=== PATIENT | female | born 1985 | race Hispanic/Latino ===

== ENCOUNTER 2025-03-25 17:21 | Emergency (ER) | payer SELFPAY ==
[~2025-03-25] VITALS: Ht 160 cm; Wt 113.0 kg
[2025-03-25 18:01] LABS: IMMATURE GRANULOCYTE ABSOLUTE 0.01 K/uL (0-1); NUCLEATED RED BLOOD CELLS 0.0 % (0.0-0.19); PLATELET COUNT (AUTO) 366 K/uL (130-400); RED BLOOD CELL COUNT(AUTO) 5.11 MIL/uL (4.00-5.50); RED CELL DISTRIBUTION WIDTH 12.8 % (11.0-15.5); WHITE BLOOD COUNT (AUTO) 8.8 K/uL (4.8-10.8)
[2025-03-25 18:34] LABS: CREATININE 0.6 mg/dL (0.5-1.0); GLOMERULAR FILTR. RATE CALC 117.0 mL/min (>90); GLUCOSE,RANDOM 88.0 mg/dL (70-105); SODIUM SERUM 137.0 mmol/L (136-145); UREA NITROGEN, BLOOD 12.0 mg/dL (7-18)
[2025-03-25 18:38] LABS: ASPARTATE AMINOTRANSFERASE 14.0 U/L (10-37); TOTAL PROTEIN, SERUM 7.3 g/dL (6.0-8.3)
[2025-03-25] MEDS: 0.9%NACL 1000ML 1,000 ML IV ONE (18:44)
[2025-03-25] MEDS ORDERED: IOHEXOL-350 75 ML VIAL IV ONE (18:48)
--- NOTE | 2025-03-25 18:48 | NUR ---
PENDING IV SITE FOR CT EXAM.
[2025-03-25 18:54] LABS: APPEARANCE,URINE CLEAR (CLEAR); GLUCOSE, URINE (UA) NEGATIVE (NEGATIVE); LEUKOCYTE ESTERASE ,URINE NEGATIVE Leu/uL (NEGATIVE); NITRATE,URINE NEGATIVE (NEGATIVE); OCCULT BLOOD,URINE +- (TRACE) (NEGATIVE)
[2025-03-25 18:55] LABS: ADD UA MICROSCOPIC YES
[2025-03-25 18:56] LABS: SQUAMOUS EPITHELIAL CELL,UR FEW /HPF (0-2)
--- NOTE | 2025-03-25 19:16 | ERN ---
ED Note History of Present Illness Stated Complaint: CONSTIPATION Chief Complaint: Constipation Time Seen by MD: 17:24 Time Seen by Midlevel: 17:24 Dictation: The patient is a 39-year-old female with a history of diabetes, cholecystectomy who presents to the emergency department with complaints of generalized abdominal pain, bloating, constipation, nausea and vomiting. Patient reports he has been having problems with constipation for over a month. Reports she has not had a normal bowel movement since. Reports that today she vomited black and became concerned. Patient denies any fevers Allergies: Coded Allergies: No Known Drug Allergies (Unverified Allergy, Unknown, 03/25/25) Past Medical History Past Medical History: Diabetes-Type II Surgical History: Tonsillectomy, Cholecystectomy LMP: Mar 16, 2025 RN Note Reviewed/Agreed w/PFSH: Yes Review of System Dictation Constitutional: Negative for fever,chills, and weight loss Eyes: Negative for injury, pain,redness, and discharge ENT: Negative for injury,pain or swelling Cardiovascular: Negative for chest pain, palpitations, and edema Respiratory: Negative for shortness of breath, cough, and wheezing, Abdomen/GI: Negative for diarrhea, positive for abdominal pain, nausea, vomiting, constipation Back: Negative for injury and pain : Negative for injury, bleeding and discharge MS/Extremity: Negative for injury and deformity Skin: Negative for rash, and discoloration Neuro: Negative for headache, weakness, numbness, tingling, and seizure Psych: Negative for suicide ideation, homicidal ideation, and hallucinations Initial Vital Sign VS Vital Signs Date Time Temp Pulse Resp B/P (MAP) Pulse Ox O2 Delivery O2 Flow Rate FiO2 03/25/25 17:23 98.2 103 20 159/78 99 Room Air 0 Physical Exam Dictation Vital Signs reviewed General Appearance: Alert, oriented x 3, no acute distress, well developed, nourished. Head and Face: non-traumatic. Eyes: PERRL, pink conjunctivas, eyelid no trauma, anterior chamber with arcus senilis. Ears: Pinnas intact and no signs of trauma or erythema ear canals clear and no discharge TM no erythema Nose: No discharge, no bleeding. Oropharynx: Mouth normal, tongue pink. pharynx clear,no erythema, tonsils no exudates, no abscesses noted, mucous membrane moist Neck: Supple, non-tender, no thyromegaly, no masses, no JVD, no bruits Breast:Deferred Chest:No tenderness, no crepitus, no paradoxical movement, no retractions Lungs:Clear, well-ventilated, symmetric, no rales, no wheezing, no rhonchi, no stridor, good breath sounds bilaterally Heart: Regular rate, regular rhythm, no murmur, no gallops Vascular: no peripheral edema, Abdomen: Soft, positive bowel sounds, nondistended, no guarding, Generalized tenderness, no rebound, no masses no hepatomegaly, no splenomegaly, no Hurst's sign, no hernias. Rectal: Deferred Genital: Deferred Neurological: Normal speech, motor function intact, sensory function intact Musculoskeletal: Neck nontender, full range of motion, back nontender, full range of motion, Extremities: nontender, full range of motion Skin: Color pink, dry, no turgor, no rash, no lacerations, no abrasions, no contusions. Lymphatic: Deferred Results (Laboratory/Radiology) Laboratory/Radiology Laboratory Tests Test 03/25/25 17:47 03/25/25 18:45 White Blood Count 8.8 K/uL (4.8-10.8) Red Blood Count 5.11 MIL/uL (4.00-5.50) Hemoglobin 14.2 g/dL (12.0-16.0) Hematocrit 42.6 % (36-48) Mean Corpuscular Volume 83.4 fL (79-99) Mean Corpuscular Hemoglobin 27.8 pg (27.0-33.0) Mean Corpuscular Hemoglobin Concent 33.3 g/dL (32.0-36.0) Red Cell Distribution Width 12.8 % (11.0-15.5) Platelet Count 366 K/uL (130-400) Mean Platelet Volume 9.8 fL (7.5-10.5) Immature Granulocyte % (Auto) 0.1 % (0-1) Neutrophils (%) (Auto) 56.7 % (40.0-77.0) Lymphocytes (%) (Auto) 34.9 % (21.0-51.0) Monocytes (%) (Auto) 5.1 % (3.0-13.0) Eosinophils (%) (Auto) 2.9 % (0.0-8.0) Basophils (%) (Auto) 0.3 % (0.0-5.0) Neutrophils # (Auto) 5.0 K/uL (1.8-7.7) Lymphocytes # (Auto) 3.1 K/uL (1.0-4.8) Monocytes # (Auto) 0.5 K/uL (0.1-1.0) Eosinophils # (Auto) 0.25 K/uL (0.00-0.70) Basophils # (Auto) 0.03 K/uL (0.00-0.20) Absolute Immature Granulocyte (auto 0.01 K/uL (0-1) Nucleated Red Blood Cells 0.0 % (0.0-0.19) Sodium Level 137 mmol/L (136-145) Potassium Level 4.0 mmol/L (3.5-5.1) Chloride Level 103 mmol/L (101-111) Carbon Dioxide Level 28 mmol/L (21-32) Blood Urea Nitrogen 12 mg/dL (7-18) Creatinine 0.6 mg/dL (0.5-1.0) Glomerular Filtration Rate Calc 117 mL/min (>90) Random Glucose 88 mg/dL (70-105) Total Calcium 8.8 mg/dL (8.5-10.1) Total Bilirubin 0.3 mg/dL (0.2-1.0) Direct Bilirubin 0.1 mg/dL (0.0-0.3) Aspartate Amino Transf (AST/SGOT) 14 U/L (10-37) Alanine Aminotransferase (ALT/SGPT) 25 U/L (12-78) Alkaline Phosphatase 90 U/L (50-136) Total Protein 7.3 g/dL (6.0-8.3) Albumin 3.3 g/dL (3.5-5.0) L Lipase 21 U/L (16-77) Serum Test, Qualitative NEGATIVE (NEGATIVE) Urine Color COLORLESS (YELLOW) Urine Appearance CLEAR (CLEAR) Urine pH 6.0 (5.0-8.0) Urine Specific [place] 1.005 (1.001-1.031) Urine Protein 10 mg/dL (NEGATIVE) H Urine Glucose (UA) NEGATIVE mg/dL (NEGATIVE) Urine Ketones NEGATIVE mg/dL (NEGATIVE) Urine Occult Blood +- (TRACE) (NEGATIVE) H Urine Nitrate NEGATIVE (NEGATIVE) Urine Bilirubin NEGATIVE mg/dL (NEGATIVE) Urine Urobilinogen 0.2 mg/dL (0.2-1.0) Urine Leukocyte Esterase NEGATIVE James/uL Urine RBC 0-1 /HPF (0-1) Urine WBC 0-1 /HPF (0-1) Urine Squamous Epithelial Cells FEW /HPF (0-2) Urine Bacteria None /HPF (None Seen) REASON: generalized Abdominal Pain ORDERING PHYSICIAN: JEET CHOUDHURY PROCEDURE: ABD PEL W - CT ABDOMEN/PELVIS W/CONTRAST EXAM: CT Abdomen and Pelvis with IV contrast CLINICAL HISTORY: Patient presents with generalized abdominal pain. TECHNIQUE: Axial computed tomography images of the abdomen and pelvis with intravenous contrast. CONTRAST: Intravenous contrast was administered. COMPARISON: None provided. FINDINGS: LUNG BASES: The lung bases are clear. No pleural effusion. LIVER: Mild hepatomegaly, right hepatic lobe measuring up to 17.0 cm in craniocaudal dimension. Diffuse hepatic steatosis. GALLBLADDER AND BILE DUCTS: Gallbladder surgically absent. No biliary ductal dilatation. PANCREAS: Unremarkable. SPLEEN: Unremarkable. ADRENAL GLANDS: 1.5 cm hypodense nodule in the right adrenal gland. Unremarkable left adrenal gland. KIDNEYS, URETERS, AND BLADDER: Kidneys appear within normal limits. No hydronephrosis or hydroureter. No urinary calculi. Urinary bladder is suboptimally distended with mildly increased wall thickening. STOMACH AND BOWEL: Small hiatus hernia. No bowel dilatation, thickening, or obstruction. APPENDIX: No evidence of acute appendicitis. PERITONEUM: No free fluid. No free air. LYMPH NODES: No lymphadenopathy. REPRODUCTIVE: Few cervical nabothian cysts. A 1.8 cm left ovarian follicular cyst. VASCULATURE: No abdominal aortic aneurysm. BONES: Multilevel mild spondylosis. No acute osseous abnormality. IMPRESSION: No acute process in the abdomen or pelvis. Mild hepatomegaly with diffuse hepatic steatosis. Post cholecystectomy status. Small hiatus hernia. The right adrenal nodule could be an adenoma. Suboptimally distended urinary bladder with mild wall thickening; clinical correlation for cystitis is advised . A few cervical nabothian cysts and a left ovarian follicular cyst. Pelvic ultrasound is recommended. Labs Reviewed?: Yes ED Course ED Course Orders Procedure Category Date Status Time Cbc With Differential LAB 03/25/25 Complete 17:35 Urinalysis Profile LAB 03/25/25 Complete 17:35 0.9%Nacl 1000ml (Ns PHA 03/25/25 Complete 1000ml) 18:00 Ondansetron 4mg Inj PHA 03/25/25 Complete (Zofran 4mg Inj) 18:00 Lipase LAB 03/25/25 Complete 17:35 Basic Metabolic Panel LAB 03/25/25 Complete 17:35 Acetaminophen 500mg PHA 03/25/25 Complete Tab (Tylenol 500mg T 18:00 Hepatic Function Panel LAB 03/25/25 Complete 17:35 Testing, LAB 03/25/25 Complete Serum Hcg 17:35 Ct Abdomen/Pelvis CT 03/25/25 Resulted W/Contrast 18:31 Iohexol (Omnipaque) PHA 03/25/25 Complete 18:48 Current Medications Medications (Trade) Dose Ordered Sig/Carlitos Route PRN Reason Start Time Stop Time Status Last Admin Dose Admin Acetaminophen (TYLenol 500MG TAB) 1,000 mg ONCE ONCE PO 03/25/25 18:00 03/25/25 18:01 DC 03/25/25 18:43 Iohexol (Omnipaque) 75 ml STK-MED ONCE IV 03/25/25 18:48 03/25/25 18:48 DC Ondansetron HCl (zoFRAN 4MG INJ) 4 mg ONCE ONCE IVP 03/25/25 18:00 03/25/25 18:01 DC 03/25/25 18:43 Sodium Chloride 1,000 ml @ 0 mls/hr ONCE ONCE IV 03/25/25 18:00 03/25/25 18:01 DC 03/25/25 18:44 Vital Signs Date Time Temp Pulse Resp B/P (MAP) Pulse Ox O2 Delivery O2 Flow Rate FiO2 03/25/25 17:23 98.2 103 20 159/78 99 Room Air 0 Medical Decision Making MDM The patient is a 39-year-old female with a history of diabetes, cholecystectomy who presents to the emergency department with complaints of generalized abdominal pain, bloating, constipation, nausea and vomiting. Patient reports he has been having problems with constipation for over a month. Reports she has not had a normal bowel movement since. Reports that today she vomited black and became concerned. Patient denies any fevers CBC showed no leukocytosis, no anemia chemistry showed no electrolyte imbalance, normal renal function, negative , urinalysis unremarkable. CT abdomen showed no acute pathology. On physical exam patient is in no acute distress. We will treat patient for constipation. Patient remained stable during the ER stay with no more episodes of vomiting. Patient will be discharged to follow up with PCP. Differential diagnosis: Bowel obstruction, constipation, gastroenteritis, pancreatitis Need for hospitalization: Patient does not meet criteria for hospitalization. There are no social concerns with this patient. DX & DISP Disposition: Discharge Departure Impression: Primary Impression: Constipation Additional Impression: Abdominal pain Condition: Stable Scripts Lactulose (Lactulose) 10 Gram/15 Ml Solution 30 ML PO BID for constipation, #500 ML 0 Refills Prov: JEET CHOUDHURY 03/25/25 Additional Instructions: Please follow up with your primary doctor in 1-2 days. Take your medications as prescribed. Continue oral hydration at home. Increase your fiber intake. If anything worsens please return to ER. FOLLOW-UP WITH PRIMARY CARE PROVIDER IN 1 TO 2 DAYS. TAKE MEDICATIONS DIRECTED HERE IN THE EMERGENCY ROOM. OKAY TO CONTINUE HOME MEDICATIONS UNLESS OTHERWISE DISCUSSED DURING YOUR VISIT IN THE EMERGENCY ROOM TODAY. RETURN TO YOUR NEAREST EMERGENCY ROOM IF SYMPTOMS WORSEN OR IF THERE IS NO IMPROVEMENT. CALL 911 IF YOU NEED IMMEDIATE ASSISTANCE. TAKE TYLENOL [id number] NEEDED AND IF NO CONTRAINDICATIONS ARE PRESENT. INCREASE ORAL HYDRATION. A WOUND CULTURE OR URINE CULTURE WAS ORDERED HERE IN THE EMERGENCY ROOM DEPARTMENT PLEASE FOLLOW-UP WITH PRIMARY CARE PROVIDER AND ADVISE THEM TO GET REPEAT PORTS FROM OUR FACILITY. IF YOU HAD ANY ALENA WRAP/SPLINTS THAT WERE APPLIED HERE, PLEASE DO NOT REMOVE THEM UNTIL YOU SEE YOUR PRIMARY CARE OR SPECIALTY. Referrals: LAMAR SALMERON (PCP) Time of Disposition: 21:02 I have reviewed the case, and I agree with, Diagnosis and Plan JEET CHOUDHURY Mar 25, 2025 19:16
--- NOTE | 2025-03-25 20:51 | HMCIMG ---
EXAM: CT Abdomen and Pelvis with IV contrast CLINICAL HISTORY: Patient presents with generalized abdominal pain. TECHNIQUE: Axial computed tomography images of the abdomen and pelvis with intravenous contrast. CONTRAST: Intravenous contrast was administered. COMPARISON: None provided. FINDINGS: LUNG BASES: The lung bases are clear. No pleural effusion. LIVER: Mild hepatomegaly, right hepatic lobe measuring up to 17.0 cm in craniocaudal dimension. Diffuse hepatic steatosis. GALLBLADDER AND BILE DUCTS: Gallbladder surgically absent. No biliary ductal dilatation. PANCREAS: Unremarkable. SPLEEN: Unremarkable. ADRENAL GLANDS: 1.5 cm hypodense nodule in the right adrenal gland. Unremarkable left adrenal gland. KIDNEYS, URETERS, AND BLADDER: Kidneys appear within normal limits. No hydronephrosis or hydroureter. No urinary calculi. Urinary bladder is suboptimally distended with mildly increased wall thickening. STOMACH AND BOWEL: Small hiatus hernia. No bowel dilatation, thickening, or obstruction. APPENDIX: No evidence of acute appendicitis. PERITONEUM: No free fluid. No free air. LYMPH NODES: No lymphadenopathy. REPRODUCTIVE: Few cervical nabothian cysts. A 1.8 cm left ovarian follicular cyst. VASCULATURE: No abdominal aortic aneurysm. BONES: Multilevel mild spondylosis. No acute osseous abnormality. IMPRESSION: No acute process in the abdomen or pelvis. Mild hepatomegaly with diffuse hepatic steatosis. Post cholecystectomy status. Small hiatus hernia. The right adrenal nodule could be an adenoma. Suboptimally distended urinary bladder with mild wall thickening; clinical correlation for cystitis is advised . A few cervical nabothian cysts and a left ovarian follicular cyst. Pelvic ultrasound is recommended. /[place]
[2025-03-25] MEDS ORDERED: LACT-441 PO (21:03)
[2025-03-25] MEDS: LACTULOSE 20 GM/30 ML UDCUP PO ONE (21:22)
[2025-03-25 21:30] VITALS: BP 155/79; PULSE 91; RESP 18; TEMP 98; O2SAT 99
== END 2025-03-25 21:34 | disposition home or self-care (01) ==
LOC: EDH 17:21
DX: K59.00 Constipation, unspecified (principal); R10.84 Generalized abdominal pain; E11.9 Type 2 diabetes mellitus without complications; Z90.49 Acquired absence of other specified parts of digestive tract; Z90.89 Acquired absence of other organs
CPT/HCPCS: 99285; 74177; 96374; 80076; 80048; 84703; 83690; 85025; 81001; 36415; J2405; Q9967

== ENCOUNTER 2025-04-15 16:56 | Emergency (ER) | payer SELFPAY ==
[~2025-04-15] VITALS: Ht 160 cm; Wt 112.9 kg
[~2025-04-15 16:56] MED LIST: LACT-441 PO
[2025-04-15 17:00] VITALS: TEMP 97.9
--- NOTE | 2025-04-15 17:20 | NUR ---
PATIENT TAKEN TO CT SCAN AT THIS TIME WITH PRIMARY RN.
[2025-04-15 17:21] LABS: IMMATURE GRANULOCYTE ABSOLUTE 0.03 K/uL (0-1); NUCLEATED RED BLOOD CELLS 0.0 % (0.0-0.19); PLATELET COUNT (AUTO) 360 K/uL (130-400); RED BLOOD CELL COUNT(AUTO) 5.13 MIL/uL (4.00-5.50); RED CELL DISTRIBUTION WIDTH 13.1 % (11.0-15.5); WHITE BLOOD COUNT (AUTO) 9.1 K/uL (4.8-10.8)
[2025-04-15 17:31] LABS: CREATININE 0.7 mg/dL (0.5-1.0); GLOMERULAR FILTR. RATE CALC 113.0 mL/min (>90); GLUCOSE,RANDOM 95.0 mg/dL (70-105); INR 1.0 (0.85-1.15); SODIUM SERUM 140.0 mmol/L (136-145); UREA NITROGEN, BLOOD 8.0 mg/dL (7-18)
--- NOTE | 2025-04-15 17:32 | ERN ---
ED Note History of Present Illness Stated Complaint: POSSIBLE STROKE SYMPTOMS Chief Complaint: Stroke Symptoms Time Seen by MD: 17:02 Time Seen by Midlevel: 17:02 Dictation: Ms. Atwood is a 39 year old female with history of type II DM, hyperlipidem ia, hypertension, migraine headaches, and obesity who presented to the Emergency Department this evening for evaluation of stroke symptoms. According to patient's she has been experiencing daily headaches as well as elevated blood pressure readings, nausea and vomiting for the past 3 days. Today at 1615 (LKWT) he noted slurring of her speech with drooling and paresthesia to right cheek. She states that she seemed to stutter when talking. She reports frontal headache rated 10/10. She denies dizziness, difficulty swallowing, vision changes (does have history of poor vision), or ataxia. She denies recent illness, trauma/fall, fever, chills, shortness of breath, cough, chest pain, palpitations, edema, abdominal pain, hematemesis, constipation, diarrhea, melena, hematochezia, dysuria, dizziness, or focal weakness/[place] [address] Allergies: Coded Allergies: No Known Drug Allergies (Unverified Allergy, Unknown, 03/25/25) Home Meds Active Scripts Lactulose (Lactulose) 10 Gram/15 Ml Solution, 30 ML PO BID for constipation, #500 ML 0 Refills Prov:JEET CHOUDHURY MANAGER ANIMAL 03/25/25 Past Medical History Past Medical History: Diabetes-Type II, High Cholesterol, Hypertension, Migraines, Other (obesity) Surgical History: Tonsillectomy, Cholecystectomy PSYCH History: no pertinent psych hx Family History: CAD (Mother CT) Social History: Negative, Lives with family LMP: Mar 18, 2025 RN Note Reviewed/Agreed w/PFSH: Yes Review of System Dictation REVIEW OF SYSTEMS: CONSTITUTIONAL: Patient denies fevers, chills, sweats and weight changes. EYES: Patient denies any visual symptoms. EARS, NOSE, AND THROAT: No difficulties with hearing. No symptoms of rhinitis or sore throat. CARDIOVASCULAR: Patient denies chest pains, palpitations, orthopnea and paroxysmal nocturnal dyspnea. Reported elevated blood pressure readings. RESPIRATORY: No dyspnea on exertion, no wheezing or cough. GI: No vomiting, diarrhea, constipation, abdominal pain, hematochezia or melena. Reported nausea. : No urinary hesitancy or dribbling. No nocturia or urinary frequency. No abnormal urethral discharge. MUSCULOSKELETAL: No myalgias or arthralgias. NEUROLOGIC: No seizures. Reports right-sided facial droop/difficulty speaking/slurred speech/right cheek. Reports 10/10 frontal headache. States had similar symptoms approximately three months ago and was hospitalized at [facility]. She was told she had migraine headache that mimicked stroke sy mptoms. PSYCHIATRIC: Patient denies problems with mood disturbance. Reports feeling anxious. States she has had increased stress. ENDOCRINE: No excessive urination or excessive thirst. DERMATOLOGIC: Patient denies any rashes or skin changes. Initial Vital Sign VS Vital Signs Date Time Temp Pulse Resp B/P (MAP) Pulse Ox O2 Delivery O2 Flow Rate FiO2 04/15/25 17:00 97.9 91 16 177/90 97 Room Air 04/15/25 18:05 0 21 Physical Exam Dictation NIH Stroke Scale/Score (NIHSS) from [employer] on 04/15/2025 All calculations should be rechecked by clinician prior to use RESULT SUMMARY: 3 points NIH Stroke Scale Still using NIHSS for all strokes? Don't miss a posterior one without HINTS! INPUTS: 1A: Level of consciousness > 0 = Alert; keenly responsive 1B: Ask month and age > 0 = Both questions right 1C: 'Blink eyes' & 'squeeze hands' > 0 = Performs both tasks 2: Horizontal extraocular movements > 0 = Normal 3: Visual hardin > 0 = No visual loss 4: Facial palsy > 1 = Minor paralysis (flat nasolabial fold, smile asymmetry) 5A: Left arm motor drift > 0 = No drift for 10 seconds 5B: Right arm motor drift > 0 = No drift for 10 seconds 6A: Left leg motor drift > 0 = No drift for 5 seconds 6B: Right leg motor drift > 0 = No drift for 5 seconds 7: Limb Ataxia > 0 = No ataxia 8: Sensation > 1 = Mild-moderate loss: less sharp/more dull 9: Language/aphasia > 0 = Normal; no aphasia 10: Dysarthria > 1 = Mild-moderate dysarthria: slurring but can be understood 11: Extinction/inattention > 0 = No abnormality NIHSS=3 Vital signs: Reviewed. Constitutional: No acute distress. Non-toxic appearing. Head/Face: Normocephalic, atraumatic. Eyes: Periorbital areas with no swelling, redness, or edema. Lids and lashes are normal. Conjunctival injection is absent. Sclera anicteric. Pupils equal, round, reactive to light. ENT: Pinnas intact and no signs of trauma or erythema. Ear canals clear and no discharge. TMs no erythema. No nasal discharge or bleeding noted. Oropharynx with no exudate, redness, swelling, masses, exudates, or evidence of obstruction. Uvula midline. Mucous membranes moist. Neck: Trachea midline, no masses palpated, and no cervical lymphadenopathy. No swelling. Supple, full range of motion. Chest/Axilla: No tenderness, no crepitus, no paradoxical movement, no retractions. Cardiovascular: Regular rate, regular rhythm, no murmur, no gallops. Symmetric pulses. No peripheral edema. Respiratory: Respirations even and unlabored. Lung sounds clear; no wheezes, rales or rhonchi. Gastrointestinal: Inspection is normal. No distention is appreciated. Bowel sounds are normal. No mass or organomegaly . There is no tenderness. No rebound. No rigidity. No voluntary or involuntary guarding. No Hurst's sign. Neurological: Normal speech, gross motor function intact, gross sensory function intact. No focal weakness/Paresthesia. Musculoskeletal/Extremities: All extremities have full range of motion, no pain or tenderness on palpation. Symmetric pulses. Integumentary: Intact. Skin is normal color, warm and dry. Cap refill less than 3 seconds. Results (Laboratory/Radiology) Laboratory/Radiology Labs Reviewed?: Yes EKG Comment: EKG Interpretation: Time Reviewed: 1720 Normal sinus rhythm Ventricular rate: 79 bpm KS Interval: 136 ms QRS duration: [address] segment elevation or depression. Clinical impression: Sinus rhythm EKG Reviewed and interpreted by Dr. Bita Herrera X-RAY Comment: PATIENT: PAMELLA ATWOOD MR#: [id number] : 1985 SEX: F AGE: 39 LOCATION: [facility] ORDER 07 STATUS: [facility] REPORT#: [id number] SERVICE 05 REASON: stroke ORDERING PHYSICIAN: ELIZ HERRERA MD PROCEDURE: CXR1VW - CHEST 1VW EXAM: CR Chest, 1 View. CLINICAL HISTORY: stroke COMPARISON: None provided. FINDINGS: LUNGS: The lungs show no infiltrate or other acute finding. PLEURAL SPACES: No evidence of pleural effusion or pneumothorax. MEDIASTINUM: The cardiomediastinal silhouette is within normal limits. BONES: No aggressive appearing osseous lesion seen. IMPRESSION: No acute cardiopulmonary pathology is evident. /[place] DICTATED BY: ALEXYS ASTUDILLO Jr., MD DATE: 04/15/251938 ELECTRONICALLY SIGNED BY: ALEXYS ASTUDILLO Jr., MD DATE: 04/15/251938 CT Scan Comment: PATIENT: PAMELLA ATWOOD MR#: [id number] : 1985 SEX: F AGE: 39 LOCATION: [facility] ORDER 07 STATUS: [facility] REPORT#: [id number] SERVICE 05 REASON: stroke ORDERING PHYSICIAN: ELIZ HERRERA MD PROCEDURE: HEAD WO - CT HEAD/BRAIN W/O CONTRAST EXAM: CT Head Without IV contrast. CLINICAL HISTORY: stroke TECHNIQUE: Axial computed tomography images of the head/brain without intravenous contrast. COMPARISON: None provided. FINDINGS: BRAIN: No evidence of acute hemorrhage. No mass lesion. No CT evidence for acute territorial infarct. No midline shift or extra-axial collections. VENTRICLES: No hydrocephalus. ORBITS: The orbits are unremarkable. SINUSES AND MASTOIDS: The paranasal sinuses and mastoid air cells are clear. BONES: No fracture. SOFT TISSUES: Unremarkable. IMPRESSION: No acute intracranial abnormality. /[place] DICTATED BY: KARMA BLANCO MD DATE: 04/15/251838 ELECTRONICALLY SIGNED BY: KARMA BLANCO MD DATE: 04/15/251838 ED Course ED Course Patient arrived with initial NIHSS of 3 (minor facial paralysis, mild/moderate sensation loss, and mild/moderate dysarthria) right-sided facial droop. 10/[address] frontal headache[address] Stat noncontrast CT scan of the brain negative for hemorrhage. Tele neurology consult performed at 1712: Suspect migraine headache mimicking stroke symptoms. Initially hypertensive with blood pressure 177/90; improve. Patient received NS 1000 mL as well as Compazine, Benadryl, and Toradol. Her headache resolved completely as well as facial droop. She declined CTA of the head and neck. She states she will follow up with her PCP to discuss elevated blood pressure readings and migraine headache treatment. Reinforced importance of recognizing stroke symptoms and seeking immediate medical attention should symptoms recur. Medical Decision Making MDM MDM: Differential diagnosis: Acute CVA, migraine headache atypical Rationale: Tests considered and ordered secondary to shared decision making include: CT, tele neurology consultation, lab, EKG Previous outside records reviewed: Old ER visits. Risk of complication and/or morbidity or mortality of patient management: None Medications-Per medication reconciliation Need for hospitalization: Patient does not meet criteria for hospitalization. Need for emergency major/minor surgery: No There are no social concerns with this patient. Prescription drug management: Continue home meds Prescriptions will include symptomatic care Patient's prior external medical records from other ER visits were reviewed by me as indicated. Prior testing and results from previous visits were reviewed. Prior tests were taken into account with medical decision making and resource utilization, independent historian/historians were used to obtain complete medical history. I independently interpreted the test that were performed, results were reviewed by me and considered findings on radiology if ordered. Medical management and examination interpretation discussions were had by me with other qualified healthcare professionals as indicated for the patient's care. DX & DISP Disposition: Discharge Departure Impression: Primary Impression: Migraine headache Condition: Stable Assign Patient to: [facility] Additional Instructions: You were evaluated in the emergency department for symptoms that can symptoms look like his stroke. After a full evaluation to include neurologist c onsultation and CAT scan, your findings were more consistent with migraine headache versus a stroke. Migraines can sometimes cause or symptoms including vision changes, numbness, tingling, difficulty speaking which may be frightening and mimic a stroke. At home you should rest, drink plenty of water, avoid skipping meals, and avoid triggers. Keep a log of your blood pressure readings and follow up this week with your primary care physician at [facility]. Go to the nearest emergency department or call 911 immediately if you develop new or sudden weakness, numbness/tingling in the face/arms/legs, difficulty speaking, understanding speech, confusion, sudden vision loss or double vision, severe headache, loss of balance/dizziness/trouble walking or any other sudden or severe change in your symptoms. Keep a headache diary to track frequency, duration, and possible triggers. Your PCP may need to refer you to a neurologist for further treatment of your migraine headaches. Referrals: LAMAR SALMERON (PCP) Time of Disposition: 19:47 ATTESTATION BY PHYSICIAN I PERFORMED THE SUBSTANTIVE PORTION OF THE VISIT. I HAVE REVIEWED AND PERSONALLY MADE AND APPROVED THE MANAGEMENT PLAN THAT IS DOCUMENTED IN THE NOTE BY MYSELF FOR THE A PP. VANITA KOENIG NP Apr 15, 2025 17:32 ELIZ HERRERA MD Apr 22, 2025 08:15
[2025-04-15 17:40] LABS: CREATINE KINASE, TOTAL 68.0 U/L (21-232); LDL DIRECT 177.0 mg/dL (0-99)
--- NOTE | 2025-04-15 17:41 | HMCIMG ---
EXAM: CT Head Without IV contrast. CLINICAL HISTORY: stroke TECHNIQUE: Axial computed tomography images of the head/brain without intravenous contrast. COMPARISON: None provided. FINDINGS: BRAIN: No evidence of acute hemorrhage. No mass lesion. No CT evidence for acute territorial infarct. No midline shift or extra-axial collections. VENTRICLES: No hydrocephalus. ORBITS: The orbits are unremarkable. SINUSES AND MASTOIDS: The paranasal sinuses and mastoid air cells are clear. BONES: No fracture. SOFT TISSUES: Unremarkable. IMPRESSION: No acute intracranial abnormality. /[place]
[2025-04-15] MEDS: 0.9%NACL 1000ML 1,000 ML IV SCH (17:49)
[2025-04-15] MEDS: PROCHLORPERAZINE 10MG/2ML INJ IV SCH (17:49)
--- NOTE | 2025-04-15 18:02 | CONS ---
CONSULT NOTE: [facility] Note # Demographics Consult Type: Acute Stroke Level 1 (0-4.5 hrs) Patient Location: Emergency Room First Name: PAMELLA Last Name: RAI Date of : 1985 Age: 39 Gender: Female Facility: [facility] Time of Initial Page (Central Time): 04/15/2025 17:09 First Contact with Site (Central Time): 04/15/2025 17:09 # HPI History: 39yof who p/w R facial droop. She was in the hospital 3 months ago with similar symptoms and was dx with complex migraine. She currently complains of headache. R facial droop seems to be variable at times. Last Known Normal: - I have collected independent history specific to time last normal or last known well. We have collaborated with the provider and at this time, we have the most current timeline with the information that is available. 4:15PM # Scores Time of exam and NIHSS (Central Time): 04/15/2025 17:12 Level of Consciousness 1a: [0] = Alert; keenly responsive LOC Questions 1b: [0] = Answers both questions correctly LOC Commands 1c: [0] = Performs both tasks correctly Best Gaze 2: [0] = Normal Visual 3: [0] = No visual loss Facial Palsy 4: [1] = Minor paralysis Motor Arm Left 5a: [0] = No drift Motor Arm Right 5b: [0] = No drift Motor Leg Left 6a: [0] = No drift Motor Leg Right 6b: [0] = No drift Limb Ataxia 7: [0] = Absent Sensory 8: [1] = [id number] sensory loss Best Language 9: [0] = No aphasia Dysarthria 10: [1] = Inub-tf-ljyneusw dysarthria Extinction and Inattention 11: [0] = No abnormality NIHSS Total: 3 # Plan Thrombolytic/Intervention: Possible IA candidate Thrombolytic Exclusion (< 3 hour window): - Individualized disability discussion had with the patient and/or family, and they have determined the current deficits to be non-disabling and do not wish to proceed with thrombolytic Possible IA Candidate: - CTA pending - If CTA shows large vessel occlusion, notify neurology and/or neuro- interventional team, per hospital protocol. Imaging: (urgency: STAT): - CT Angiogram Head and CT Angiogram Neck AND call back with results if abnormal Medication: - migraine cocktail: Toradol 30 mg IV + Benadryl 25 mg IV + antiemetic IV Other: - If patient has any neurological deterioration please call me back immediately - If CTA negative and symptoms resolved may dispo; otherwise would admit for MRI and symptom control # Logistics Attestation of consult completion: The patient is located at: [facility]. Facility staff participated in the visit. I performed this telemedicine visit from my offsite office utilizing interactive 2 way audio and visual telecommunication technology at the request of the onsite emergency room provider. Total time spent in telemedicine encounter: I spent 23 minutes reviewing clinical data and/or imaging, obtaining history, examining the patient, communicating with the onsite care team, and in preparation of this report. # Demographics First Name: PAMELLA Last Name: RAI Facility: [facility] DAMIEN WOODS MD Apr 15, 2025 18:02
--- NOTE | 2025-04-15 18:40 | HMCIMG ---
EXAM: CR Chest, 1 View. CLINICAL HISTORY: stroke COMPARISON: None provided. FINDINGS: LUNGS: The lungs show no infiltrate or other acute finding. PLEURAL SPACES: No evidence of pleural effusion or pneumothorax. MEDIASTINUM: The cardiomediastinal silhouette is within normal limits. BONES: No aggressive appearing osseous lesion seen. IMPRESSION: No acute cardiopulmonary pathology is evident. /[place]
--- NOTE | 2025-04-15 20:05 | EKG ---
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
[2025-04-15 20:25] VITALS: BP 148/65; PULSE 71; RESP 18; O2SAT 99
== END 2025-04-15 20:27 | disposition home or self-care (01) ==
LOC: EDH 16:56
DX: G43.909 Migraine, unspecified, not intractable, without status migrainosus (principal); E11.9 Type 2 diabetes mellitus without complications; E66.9 Obesity, unspecified; E78.00 Pure hypercholesterolemia, unspecified; G51.0 Bell's palsy; I10 Essential (primary) hypertension; Z79.01 Long term (current) use of anticoagulants; Z90.49 Acquired absence of other specified parts of digestive tract; Z90.89 Acquired absence of other organs
CPT/HCPCS: 99285; 96374; 70450; 96375; 71045; 96361; 82550; 83721; 84484; 80048; 85025; 85610; 85730; 82948; 36415; 93005; J1885; J1200; J0780